=== PATIENT | male | born 1985 | race Caucasian/White ===

== ENCOUNTER 2017-09-28 11:05 | Emergency (ER) | payer SELFPAY ==
[~2017-09-28] VITALS: Ht 161.3 cm; Wt 62.7 kg
[2017-09-28 11:09] VITALS: BP 143/81
--- NOTE | 2017-09-28 11:11 | NUR ---
PT AMBULATED TO BED 12.
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
--- NOTE | 2017-09-28 11:31 | NUR ---
DR CARUSO EVALUATING PT AT BEDSIDE
[2017-09-28] MEDS ORDERED: KETOROLAC 30 MG/ML VIAL IM ONE (11:40)
[2017-09-28] MEDS ORDERED: CYCLOBENZAPRINE 10 MG TAB PO ONE (12:10)
[2017-09-28 12:56] VITALS: BP 143/81
--- NOTE | 2017-09-28 12:57 | NUR ---
Patient discharged with v/s stable. Written and verbal after care instructions given and explained. Patient alert, oriented and verbalized understanding of instructions. Ambulatory with steady gait. All questions addressed prior to discharge. ID band removed. Patient advised to follow up with PMD. Rx of FLEXERIL, IBUPROFEN given. Patient educated on indication of medication including possible reaction and side effects. Opportunity to ask questions provided and answered.
== END 2017-09-28 12:57 | disposition home or self-care (01) ==
LOC: MED 11:05
DX: M54.6 Pain in thoracic spine (principal); V43.52XA Car driver injured in collision with other type car in traffic accident, initial encounter; Y93.I9 Activity, other involving external motion; Y92.488 Other paved roadways as the place of occurrence of the external cause; Y99.8 Other external cause status
CPT/HCPCS: 96372; 99283; J1885